=== PATIENT | female | born 1950 | race Caucasian/White ===

== ENCOUNTER 2016-06-14 11:21 | Emergency (ER) | payer MEDICARE, OTHER ==
[2016-06-14] MEDS ORDERED: MORPHINE 2 MG/ML SYR ONE (14:40)
== END 2016-06-14 16:38 | disposition home or self-care (01) ==
LOC: ER 11:21
DX: S40.012A Contusion of left shoulder, initial encounter (principal); S70.02XA Contusion of left hip, initial encounter; S20.212A Contusion of left front wall of thorax, initial encounter; W01.0XXA Fall on same level from slipping, tripping and stumbling without subsequent striking against object, initial encounter; Y92.019 Unspecified place in single-family (private) house as the place of occurrence of the external cause; R07.9 Chest pain, unspecified
CPT/HCPCS: 36415; 80053; 82553; 84484; 85025; 93005; 96374